=== PATIENT | female | born 1980 | race American Indian/Alaskan Native ===

== ENCOUNTER 2017-11-19 10:47 | Emergency (ER) | payer MEDICAID, OTHER, SELFPAY ==
[2017-11-19 10:53] VITALS: BP 111/68
--- NOTE | 2017-11-19 11:09 | EDM.PDOC ---
ED HPI GENERAL MEDICAL PROBLEM - General Chief Complaint: Back Pain or Injury Stated Complaint: lower abd pain, lower back pain Time Seen by Provider: 11/19/17 11:05 Source of Information: Reports: Patient History Limitations: Reports: No Limitations - History of Present Illness INITIAL COMMENTS - FREE TEXT/NARRATIVE: Connie is a 37 year old female who presents to the ED with c/o right groin pain and lower back pain. She reports she does have a history of PCOS, endometriosis , and kidney stones. She reports she has a lump in her right groin area and a lump on her back. She reports the only thing she has taken for pain is Tylenol, which does not help. She denies any chest pain, abdominal pain, shortness of breath, N/V/D, fever, chills, urinary urgency, frequency, dysuria, or hematuria. SHe does report she has had a hysterectomy. Onset: Today Duration: Constant Location: Reports: Abdomen, Back, Pelvis Quality: Reports: Ache Severity: Severe Improves with: Reports: None Worsens with: Reports: None Associated Symptoms: Denies: Confusion, Chest Pain, Cough, cough w sputum, Diaphoresis, Fever/Chills, Headaches, Loss of Appetite, Malaise, Nausea/Vomiting , Rash, Seizure, Shortness of Breath, Syncope, Weakness Treatments FOREST OFFICER: Reports: Acetaminophen Back Pain Score (Numeric/FACES): 8 Abdominal Pain Score (Numeric/FACES): 8 - Related Data Allergies Allergy/AdvReac Type Severity Reaction Status Date / Time ceftriaxone [From Rocephin] Allergy Hives Verified 11/19/17 10:53 cefuroxime [From Ceftin] Allergy Hives Verified 11/19/17 10:53 celecoxib [From Celebrex] Allergy Hives Verified 11/19/17 10:53 doxycycline Allergy Airway Verified 11/19/17 10:53 Tightness erythromycin base Allergy Hives Verified 11/19/17 10:53 [Erythromycin Base] ibuprofen Allergy Swelling Verified 11/19/17 10:53 naproxen Allergy Airway Verified 11/19/17 10:53 Tightness sulfamethoxazole Allergy Hives Verified 11/19/17 10:53 [From Bactrim] trimethoprim [From Bactrim] Allergy Hives Verified 11/19/17 10:53 Home Meds: Home Meds Acetaminophen [Tylenol] 650 mg PO Q6H 06/19/17 [History] Past Medical History - Past Health History Medical/Surgical History: Denies Medical/Surgical History HEENT History: Reports: Impaired Vision Other HEENT History: wears corrective lenses Cardiovascular History: Reports: Other (See Below) Other Cardiovascular History: "heart stopped during surgery" Respiratory History: Reports: None Gastrointestinal History: Reports: Cholelithiasis Other Gastrointestinal History: diarrhea since 3 am Genitourinary History: Reports: Other (See Below) Other Genitourinary History: endometrosis, PCOS. enlarged right kidney and to have a stent placed 03/03/2016 [employer]ER History: Reports: Endometriosis, Polycystic Ovaries Other OB/BYN History: endometriosis, PCOS Musculoskeletal History: Reports: None Neurological History: Reports: Migraines Other Neuro History: history of cva 6 months after cardiac arrest. Psychiatric History: Reports: None Endocrine/Metabolic History: Reports: Other (See Below) Other Endocrine/Metabolic History: "insulin resistant" Hematologic History: Reports: None Immunologic History: Reports: None Oncologic (Cancer) History: Reports: Ovarian Dermatologic History: Reports: None - Infectious Disease History Infectious Disease History: Reports: C-Difficile Other Infectious Disease History: lyme disease. - Past Surgical History Head Surgeries/Procedures: Reports: None GI Surgical History: Reports: Appendectomy, Cholecystectomy Musculoskeletal Surgical History: Reports: None Social & Family History - Family History Family Medical History: Noncontributory Cardiac: Reports: None Respiratory: Reports: None GI: Reports: None Immunologic: Reports: None Dermatologic: Reports: None Oncologic: Reports: None - Tobacco Use Smoking Status *Q: Current Every Day Smoker Years of Tobacco use: 18 Packs/Tins Daily: 0.5 - Caffeine Use Caffeine Use: Reports: None Caffeine Use Comment: mother states no caffeine use. - Recreational Drug Use Recreational Drug Use: No - Living Situation & Occupation Living situation: Reports: with Family, Single Occupation: Unemployed ED ROS GENERAL - Review of Systems Review Of Systems: ROS reveals no pertinent complaints other than HPI. ED EXAM, RENAL/ - Physical Exam Exam: See Below Exam Limited By: No Limitations General Appearance: Alert, WD/WN, No Apparent Distress, Mild Distress Eye Exam: Bilateral Eye: EOMI, Normal Fundi, Normal Inspection, PERRL Head: Atraumatic, Normocephalic Neck: Normal Inspection, Supple, Non-Tender, Full Range of Motion Respiratory/Chest: No Respiratory Distress, Lungs Clear, Normal Breath Sounds, No Accessory Muscle Use, Chest Non-Tender Cardiovascular: Normal Peripheral Pulses, Regular Rate, Rhythm, No Edema, No Gallop, No JVD, No Murmur, No Rub GI/Abdominal: Normal Bowel Sounds, Soft, Non-Tender, No Organomegaly, No Distention, No Abnormal Bruit, No Mass, Other (right inguinal lymphadenitis, no erythema) Back Exam: Normal Inspection, Full Range of Motion, CVA Tenderness (L), CVA Tenderness (R) Extremities: Normal Inspection, Normal Range of Motion, Non-Tender, Normal Capillary Refill, No Pedal Edema Neurological: Alert, Oriented, CN II-XII Intact, Normal Cognition, Normal Gait, Normal Reflexes, No Motor/Sensory Deficits Psychiatric: Normal Affect, Normal Mood Skin Exam: Warm, Dry, Intact, Normal Color, No Rash Lymphatic: Other (right inguinal lymphadenopathy) Course - Vital Signs Last Recorded V/S: Last Vital Signs Temp 97.3 F 11/19/17 10:48 Pulse 91 11/19/17 10:48 Resp 16 11/19/17 10:48 BP 111/68 11/19/17 10:48 Pulse Ox 99 11/19/17 10:48 - Orders/Labs/Meds Orders: Active Orders 24 hr Category Date Time Status DRUG SCREEN URINE BIORAD [URCHEM] Stat Lab 11/19/17 11:08 Ordered UA W/MICROSCOPIC [URIN] Stat Lab 11/19/17 11:08 Ordered Labs: Laboratory Tests 11/19/17 11/19/17 11/19/17 Range/Units 11:08 11:08 11:08 WBC 7.6 (5.0-10.0) 10^3/uL RBC 4.77 (4.00-5.50) 10^6/uL Hgb 14.1 (12.0-16.0) g/dL Hct 42.7 (37.0-47.0) % MCV 89.5 (82.0-94.0) fL MCH 29.6 (27.0-32.0) pg MCHC 33.0 (33.0-38.0) g/dL RDW Coeff of Ami 13.1 (11.0-15.0) % Plt Count 258 (150-400) 10^3/uL Neut % (Auto) 65.6 (35-85) % Lymph % (Auto) 25.5 (10-55) % Ritchie % (Auto) 7.8 (0-16) % Eos % (Auto) 0.8 (0-5) % Baso % (Auto) 0.3 (0-3) % Neut # (Auto) 4.96 (1.80-7.00) 10^3/uL Lymph # (Auto) 1.93 (1.00-4.80) 10^3/uL Ritchie # (Auto) 0.59 (0.00-0.80) 10^3/uL Eos # (Auto) 0.06 (0.00-0.45) 10^3/uL Baso # (Auto) 0.02 10^3/uL Sodium (136-145) mEq/L Potassium (3.5-5.0) mEq/L Chloride (98-106) mEq/L Carbon Dioxide (21-32) mmol/L BUN (7-18) mg/dL Creatinine (0.6-1.0) mg/dL Est Cr Clr Drug Dosing mL/min Estimated GFR (MDRD) (>=60) mL/min Glucose (75-99) mg/dL Calcium (8.4-10.1) mg/dL Total Bilirubin (0.0-1.0) mg/dL AST (15-37) U/L ALT (12-78) U/L Alkaline Phosphatase (46-116) U/L C-Reactive Protein (0.2-0.8) mg/dL Total Protein (6.4-8.2) g/dL Albumin (3.4-5.0) g/dL Amylase (25-115) U/L Urine Color Yellow (YELLOW) Urine Appearance Clear (CLEAR) Urine pH 6.0 (4.5-8.0) Ur Specific [place] 1.010 (1.003-1.020) Urine Protein Negative (NEGATIVE) mg/dL Urine Glucose (UA) Negative (NEGATIVE) mg/dL Urine Ketones Negative (NEGATIVE) mg/dL Urine Occult Blood Negative (NEGATIVE) Urine Nitrite Negative (NEGATIVE) Urine Bilirubin Negative (NEGATIVE) Urine Urobilinogen 0.2 (0.2-1.0) EU/dL Ur Leukocyte Esterase Negative (NEGATIVE) Urine RBC Not seen (0-5) /HPF Urine WBC Not seen (0-5) /HPF Ur Squamous Epith Cells Occasional H (NOT SEEN) /HPF Urine Bacteria Occasional H (NOT SEEN) /HPF Urine Mucus Occasional H (NOT SEEN) /HPF Urine Opiates Screen Negative (NEGATIVE) Ur Oxycodone Screen Positive H (NEGATIVE) Urine Methadone Screen Negative (NEGATIVE) Ur Barbiturates Screen Negative (NEGATIVE) U Tricyclic Antidepress Negative (NEGATIVE) Ur Phencyclidine Scrn Negative (NEGATIVE) Ur Amphetamine Screen Negative (NEGATIVE) U Methamphetamines Scrn Positive H (NEGATIVE) Urine MDMA Screen Negative (NEGATIVE) U Benzodiazepines Scrn Positive H (NEGATIVE) Urine Cocaine Screen Negative (NEGATIVE) U Marijuana (THC) Screen Positive H (NEGATIVE) 11/19/17 Range/Units 11:08 WBC (5.0-10.0) 10^3/uL RBC (4.00-5.50) 10^6/uL Hgb (12.0-16.0) g/dL Hct (37.0-47.0) % MCV (82.0-94.0) fL MCH (27.0-32.0) pg MCHC (33.0-38.0) g/dL RDW Coeff of Ami (11.0-15.0) % Plt Count (150-400) 10^3/uL Neut % (Auto) (35-85) % Lymph % (Auto) (10-55) % Ritchie % (Auto) (0-16) % Eos % (Auto) (0-5) % Baso % (Auto) (0-3) % Neut # (Auto) (1.80-7.00) 10^3/uL Lymph # (Auto) (1.00-4.80) 10^3/uL Ritchie # (Auto) (0.00-0.80) 10^3/uL Eos # (Auto) (0.00-0.45) 10^3/uL Baso # (Auto) 10^3/uL Sodium 139 (136-145) mEq/L Potassium 3.8 (3.5-5.0) mEq/L Chloride 104 (98-106) mEq/L Carbon Dioxide 26 (21-32) mmol/L BUN 8 (7-18) mg/dL Creatinine 0.6 (0.6-1.0) mg/dL Est Cr Clr Drug Dosing 108.26 mL/min Estimated GFR (MDRD) > 60 (>=60) mL/min Glucose 93 (75-99) mg/dL Calcium 8.9 (8.4-10.1) mg/dL Total Bilirubin 0.5 (0.0-1.0) mg/dL AST 14 L (15-37) U/L ALT 16 (12-78) U/L Alkaline Phosphatase 64 (46-116) U/L C-Reactive Protein < 0.2 L (0.2-0.8) mg/dL Total Protein 7.4 (6.4-8.2) g/dL Albumin 4.0 (3.4-5.0) g/dL Amylase 45 (25-115) U/L Urine Color (YELLOW) Urine Appearance (CLEAR) Urine pH (4.5-8.0) Ur Specific [place] (1.003-1.020) Urine Protein (NEGATIVE) mg/dL Urine Glucose (UA) (NEGATIVE) mg/dL Urine Ketones (NEGATIVE) mg/dL Urine Occult Blood (NEGATIVE) Urine Nitrite (NEGATIVE) Urine Bilirubin (NEGATIVE) Urine Urobilinogen (0.2-1.0) EU/dL Ur Leukocyte Esterase (NEGATIVE) Urine RBC (0-5) /HPF Urine WBC (0-5) /HPF Ur Squamous Epith Cells (NOT SEEN) /HPF Urine Bacteria (NOT SEEN) /HPF Urine Mucus (NOT SEEN) /HPF Urine Opiates Screen (NEGATIVE) Ur Oxycodone Screen (NEGATIVE) Urine Methadone Screen (NEGATIVE) Ur Barbiturates Screen (NEGATIVE) U Tricyclic Antidepress (NEGATIVE) Ur Phencyclidine Scrn (NEGATIVE) Ur Amphetamine Screen (NEGATIVE) U Methamphetamines Scrn (NEGATIVE) Urine MDMA Screen (NEGATIVE) U Benzodiazepines Scrn (NEGATIVE) Urine Cocaine Screen (NEGATIVE) U Marijuana (THC) Screen (NEGATIVE) - Re-Assessments/Exams Free Text/Narrative Re-Assessment/Exam: Discussed labs with patient. All labs normal. Urine drug screen does reveal + for methamphetamines, oxycodone, marijuana, and benzodiazepines. Patient denies any drug use other than Sudafed and Tylenol. There was a delay of care as there was another emergency in the ED at the same time, therefore patient became very rude with staff about having to wait. Offered to do KUB to check for kidney stones, but patient declined any imaging. I did discuss with her that I would not give her any narcotic pain medication as I have no indication for it and she tested positive on her urine drug screen. Discussed with her that her urine does not reveal infection or any RBCs to suggest kidney stones. She was rude to staff and just wanted to be discharged if we weren't going to give her any pain medications anyway. Departure - Departure Time of Disposition: 12:58 Disposition: Home, Self-Care 01 Condition: Good Clinical Impression: Groin pain Qualifiers: Laterality: unspecified laterality Qualified Code(s): R10.30 - Lower abdominal pain, unspecified Back pain Qualifiers: Back pain location: low back pain Chronicity: acute Back pain laterality: bilateral Sciatica presence: with sciatica Sciatica laterality: bilateral sciatica Qualified Code(s): M54.42 - Lumbago with sciatica, left side - Discharge Information Instructions: Abdominal Pain, Adult, [id number] Referrals: PCP,None [Primary Care Provider] - Forms: ED Department Discharge Additional Instructions: Tylenol or ibuprofen as needed for pain Warm or cold for comfort Follow up with PCP in clinic if symptoms worsen - My Orders Last 24 Hours: My Active Orders 11/19/17 11:08 DRUG SCREEN URINE BIORAD [URCHEM] Stat UA W/MICROSCOPIC [URIN] Stat - Assessment/Plan Last 24 Hours: My Active Orders 11/19/17 11:08 DRUG SCREEN URINE BIORAD [URCHEM] Stat UA W/MICROSCOPIC [URIN] Stat
[2017-11-19 11:52] LABS: CHLORIDE,CL 104 mEq/L (98-106); SODIUM,NA 139 mEq/L (136-145)
== END 2017-11-19 13:27 | disposition home or self-care (01) ==
LOC: CC.ED 10:47
DX: M54.42 Lumbago with sciatica, left side (principal); R10.30 Lower abdominal pain, unspecified; F17.210 Nicotine dependence, cigarettes, uncomplicated; Z88.8 Allergy status to other drugs, medicaments and biological substances; Z88.1 Allergy status to other antibiotic agents; Z88.6 Allergy status to analgesic agent; Z88.2 Allergy status to sulfonamides
CPT/HCPCS: 36415; 80053; 80305; 81001; 82150; 85025; 86140; 99284